=== PATIENT | male | born 1965 | race Caucasian/White ===

== ENCOUNTER 2021-07-03 00:08 | Inpatient (IN) | payer BC ==
[2021-07-03 00:44] LABS: #Lymphocytes 1.2 thou/uL (1.20-3.40); #Neutrophils 15.7 thou/uL (1.40-6.50); %Basophils 0.2 % (0.0-1.0); %Eosinophils 0.2 % (0.0-10.0); %Lymphocytes 6.1 % (21.0-51.0); %Monocytes 10.6 % (0.0-10.0); %Neutrophils 82.9 % (42.0-75.0); Hemoglobin 17.4 g/dL (14.0-18.0); Mean Corpuscular HGB CONC 34.8 g/dL (32.0-36.0); Mean Corpuscular Hemoglobin 30.2 pg (27.0-31.0); Mean Corpuscular Volume 86.8 fL (78.0-98.0); Mean Platelet Volume 7.4 fL (7.4-10.4); Platelet Count 200 thou/uL (130-400); RBC Distribution Width 12.1 % (11.5-14.5); Red Blood Cell (RBC) Count 5.78 mill/uL (4.70-6.10)
[2021-07-03 01:27] LABS: ALT (SGPT) 51 U/L (8-55); AST (SGOT) 21 U/L (5-34); Albumin 4.6 g/dL (3.5-5.0); Alkaline Phosphatase 68 U/L (40-110); Anion Gap 18 mmol/L (10-20); BUN (Urea Nitrogen) 11 mg/dL (8.4-25.7); Bilirubin, Total 1.6 mg/dL (0.2-1.2); Calc. Creatinine Clearance 0 mL/min (70-130); Calcium 9.7 mg/dL (7.8-10.44); Carbon Dioxide 21 mmol/L (22-29); Chloride 100 mmol/L (98-107); Globulin 3.6 g/dL (2.4-3.5); Glucose 133 mg/dL (70-105); Lipase Less than 4 U/L (8-78); Potassium 3.7 mmol/L (3.5-5.1); Protein, Total 8.2 g/dL (6.0-8.3); Sodium 135 mmol/L (136-145)
[2021-07-03] MEDS ORDERED: Morphine 4 MG/ML VIAL ONE (01:31)
[2021-07-03] MEDS ORDERED: Ondansetron PF 4 MG/2 ML Vial ONE (01:32)
[2021-07-03] MEDS ORDERED: Piperacillin/Tazobactam 3.375 GM VIAL ONE (03:08)
[2021-07-03] MEDS ORDERED: Morphine 4 MG/ML VIAL SLOW IVP PRN ×2 (03:23→09:40)
[2021-07-03] MEDS ORDERED: Ondansetron ODT 4 MG TAB SL PRN (03:30)
[2021-07-03] MEDS ORDERED: Ondansetron PF 4 MG/2 ML Vial IVP PRN ×2 (03:30→20:56)
[2021-07-03] MEDS ORDERED: Sodium Chloride 0.9% 1,000 ML IV SCH (03:30)
[2021-07-03 04:30] LABS: Bacteria/HPF None Seen HPF (None Seen); Bilirubin Negative (Negative); Blood, Urine 1+ (Negative); Clarity Clear (Clear); Glucose, Urine (Dipstick) Normal (Negative); Ketone, Urine 10 mg/dL (Negative); Leukocyte Negative Leu/uL (Negative); Nitrite Negative (Negative); Protein, Urine (Dipstick) 10 mg/dL (Neg-Trace); Specific Gravity, Urine 1.044 (1.002-1.036); Squamous Epithelial None Seen HPF (0-3); Urobilinogen Normal mg/dL (Less than 2); WBC/HPF 0-3 HPF (0-3); pH, Urine 5.5 (5.0-9.0)
[2021-07-03 04:50] LABS: SARS-CoV-2 NAA Rapid Test Not Detected (NotDetected)
[2021-07-03] MEDS ORDERED: Piperacillin/Tazobactam 3.375 GM in Sodium Chloride 0.9% 100 ML IVPB SCH (08:00)
[2021-07-03] MEDS ORDERED: Acetaminophen 325 MG TAB PO PRN (08:36)
[2021-07-03] MEDS ORDERED: Iopamidol 370 76% 100 ML VIAL ONE (09:29)
[2021-07-03 09:37] VITALS: BMI 31.8
[2021-07-03] MEDS ORDERED: Pantoprazole 40 MG VIAL IVP SCH (09:45)
[2021-07-03] MEDS: D5 1/2 NS w/20 mEq KCL 1,000 ML IV SCH ×2 (10:21→17:44)
[2021-07-03] MEDS: Morphine 4 MG/ML VIAL SLOW IVP PRN (10:27)
[2021-07-03] MEDS: Piperacillin/Tazobactam 3.375 GM in Sodium Chloride 0.9% 100 ML IVPB SCH ×2 (15:59→22:07)
[2021-07-03] MEDS ORDERED: Promethazine HCl 12.5 MG in Sodium Chloride 0.9% 50 ML IVPB PRN (21:01)
[2021-07-04] MEDS: D5 1/2 NS w/20 mEq KCL 1,000 ML IV SCH ×3 (01:26→20:08)
[2021-07-04 06:06] LABS: #Basophils 0.1 thou/uL (0.0-0.2); #Lymphocytes 1.3 thou/uL (1.20-3.40); #Monocytes 1.6 thou/uL (0.11-0.59); #Neutrophils 15.3 thou/uL (1.40-6.50); %Basophils 0.3 % (0.0-1.0); %Eosinophils 0.1 % (0.0-10.0); %Lymphocytes 7.2 % (21.0-51.0); %Monocytes 8.6 % (0.0-10.0); %Neutrophils 83.8 % (42.0-75.0); Hemoglobin 14.9 g/dL (14.0-18.0); Mean Corpuscular HGB CONC 34.6 g/dL (32.0-36.0); Mean Corpuscular Hemoglobin 30.9 pg (27.0-31.0); Mean Corpuscular Volume 89.2 fL (78.0-98.0); Mean Platelet Volume 7.4 fL (7.4-10.4); Platelet Count 147 thou/uL (130-400); Red Blood Cell (RBC) Count 4.84 mill/uL (4.70-6.10); White Blood Cell (WBC) Count 18.2 thou/uL (4.8-10.8)
[2021-07-04 06:27] LABS: ALT (SGPT) 28 U/L (8-55); AST (SGOT) 11 U/L (5-34); Albumin 3.7 g/dL (3.5-5.0); Alkaline Phosphatase 56 U/L (40-110); Anion Gap 14 mmol/L (10-20); BUN (Urea Nitrogen) 10 mg/dL (8.4-25.7); Bilirubin, Total 1.8 mg/dL (0.2-1.2); Calc. Creatinine Clearance 109 mL/min (70-130); Carbon Dioxide 26 mmol/L (22-29); Chloride 100 mmol/L (98-107); Globulin 3.2 g/dL (2.4-3.5); Glucose 155 mg/dL (70-105); Potassium 3.8 mmol/L (3.5-5.1); Protein, Total 6.9 g/dL (6.0-8.3); Sodium 136 mmol/L (136-145)
[2021-07-04] MEDS: Piperacillin/Tazobactam 3.375 GM in Sodium Chloride 0.9% 100 ML IVPB SCH ×2 (10:02→15:42)
[2021-07-04] MEDS: Morphine 4 MG/ML VIAL SLOW IVP PRN (10:03)
[2021-07-04] MEDS: Pantoprazole 40 MG VIAL IVP SCH (10:03)
[2021-07-05] MEDS: Piperacillin/Tazobactam 3.375 GM in Sodium Chloride 0.9% 100 ML IVPB SCH ×3 (00:35→16:10)
[2021-07-05 05:35] LABS: #Eosinphils 0.1 thou/uL (0.0-0.7); #Lymphocytes 0.9 thou/uL (1.20-3.40); #Monocytes 1.1 thou/uL (0.11-0.59); #Neutrophils 10.5 thou/uL (1.40-6.50); %Basophils 0.3 % (0.0-1.0); %Eosinophils 0.4 % (0.0-10.0); %Lymphocytes 7.1 % (21.0-51.0); %Neutrophils 83.2 % (42.0-75.0); Hemoglobin 13.2 g/dL (14.0-18.0); Mean Corpuscular Hemoglobin 30.5 pg (27.0-31.0); Mean Corpuscular Volume 89.7 fL (78.0-98.0); Mean Platelet Volume 7.8 fL (7.4-10.4); Platelet Count 128 thou/uL (130-400); RBC Distribution Width 11.9 % (11.5-14.5); Red Blood Cell (RBC) Count 4.32 mill/uL (4.70-6.10); White Blood Cell (WBC) Count 12.6 thou/uL (4.8-10.8)
[2021-07-05 05:54] LABS: ALT (SGPT) 28 U/L (8-55); AST (SGOT) 21 U/L (5-34); Albumin 3.4 g/dL (3.5-5.0); Alkaline Phosphatase 57 U/L (40-110); Anion Gap 14 mmol/L (10-20); BUN (Urea Nitrogen) 9 mg/dL (8.4-25.7); Bilirubin, Direct 0.5 mg/dL (0.1-0.3); Calc. Creatinine Clearance 123 mL/min (70-130); Calcium 8.8 mg/dL (7.8-10.44); Carbon Dioxide 26 mmol/L (22-29); Chloride 104 mmol/L (98-107); Globulin 3.3 g/dL (2.4-3.5); Glucose 133 mg/dL (70-105); Potassium 3.6 mmol/L (3.5-5.1); Protein, Total 6.7 g/dL (6.0-8.3); Sodium 140 mmol/L (136-145)
[2021-07-05] MEDS: D5 1/2 NS w/20 mEq KCL 1,000 ML IV SCH (08:59)
[2021-07-05] MEDS: Pantoprazole 40 MG VIAL IVP SCH (09:00)
[2021-07-05] MEDS ORDERED: D5 1/2 NS w/20 mEq KCL 1,000 ML IV SCH (10:31)
[2021-07-06] MEDS: Piperacillin/Tazobactam 3.375 GM in Sodium Chloride 0.9% 100 ML IVPB SCH ×2 (00:05→08:12)
[2021-07-06 05:16] LABS: #Basophils 0.1 thou/uL (0.0-0.2); #Eosinphils 0.2 thou/uL (0.0-0.7); #Monocytes 0.9 thou/uL (0.11-0.59); #Neutrophils 6.3 thou/uL (1.40-6.50); %Eosinophils 1.8 % (0.0-10.0); %Lymphocytes 12.2 % (21.0-51.0); %Monocytes 10.5 % (0.0-10.0); %Neutrophils 74.5 % (42.0-75.0); Hemoglobin 12.9 g/dL (14.0-18.0); Mean Corpuscular HGB CONC 34.2 g/dL (32.0-36.0); Mean Corpuscular Hemoglobin 30.7 pg (27.0-31.0); Mean Corpuscular Volume 89.8 fL (78.0-98.0); Mean Platelet Volume 7.8 fL (7.4-10.4); Platelet Count 169 thou/uL (130-400); Red Blood Cell (RBC) Count 4.22 mill/uL (4.70-6.10); White Blood Cell (WBC) Count 8.4 thou/uL (4.8-10.8)
[2021-07-06 05:31] LABS: ALT (SGPT) 121 U/L (8-55); AST (SGOT) 96 U/L (5-34); Albumin 3.3 g/dL (3.5-5.0); Alkaline Phosphatase 70 U/L (40-110); Anion Gap 14 mmol/L (10-20); BUN (Urea Nitrogen) 10 mg/dL (8.4-25.7); Bilirubin, Total 0.8 mg/dL (0.2-1.2); Calc. Creatinine Clearance 132 mL/min (70-130); Calcium 8.5 mg/dL (7.8-10.44); Carbon Dioxide 24 mmol/L (22-29); Chloride 105 mmol/L (98-107); Globulin 3.3 g/dL (2.4-3.5); Glucose 101 mg/dL (70-105); Potassium 3.5 mmol/L (3.5-5.1); Protein, Total 6.6 g/dL (6.0-8.3); Sodium 139 mmol/L (136-145)
[2021-07-06] MEDS: Pantoprazole 40 MG VIAL IVP SCH (08:12)
[2021-07-06 08:34] VITALS: BP 118/78; TEMP 98.8
== END 2021-07-06 15:39 | disposition home or self-care (01) | DRG 871 ==
LOC: ERS 00:08 → MSONC 03:12
PROVIDERS: ADMIT Surgery; ATTEND Surgery
DX: A41.9 Sepsis, unspecified organism (principal); K65.1 Peritoneal abscess; K57.20 Diverticulitis of large intestine with perforation and abscess without bleeding; Z20.822 Contact with and (suspected) exposure to COVID-19; E78.5 Hyperlipidemia, unspecified; Z86.010 Personal history of colon polyps; Z79.899 Other long term (current) drug therapy
CPT/HCPCS: 36415; 74177; 80053; 81003; 81015; 82248; 83605; 83690; 85025; 87040; 87086; 96365; 96366; 96375; C9113; J1956; J2270; J2405; J2543; J3480; J3490; J7050; Q9967; U0002